=== PATIENT | female | born 1955 | race Caucasian/White ===

== ENCOUNTER 2022-10-15 19:46 | Emergency (ER) | payer MEDICAID, OTHER ==
[~2022-10-15] VITALS: Ht 149.9 cm; Wt 57.0 kg
[~2022-10-15 19:46] MED LIST: AMA4 PO; LOSA100T3 PO; METF-415 PO
[2022-10-15] MEDS ORDERED: ONDANSETRON HCL 4MG/2ML INJ IV STA (20:10)
[2022-10-15 20:35] LABS: BASOPHILS % 0.8 % (0.0-2.0); EOSINOPHILS % 3.7 % (0.0-5.0); HEMATOCRIT. 40.1 % (36.0-48.0); HEMOGLOBIN. 13.3 g/dL (12.0-16.0); MEAN CORPUSCULAR HEMOGLOBIN 26.7 pg (28.0-32.0); MEAN CORPUSCULAR VOLUME 80.9 fL (81.0-99.0); MEAN PLATELET VOLUME 7.2 fl (7.4-10.4); MONOCYTES % 9.3 % (2.0-8.0); NEUTROPHILS % 43.2 % (40.0-76.0); PLATELET 298 x1000/uL (130-400); RED BLOOD CELL COUNT 4.96 mill/uL (4.2-5.4); RED CELL DISTRIBUTION WIDTH 16.3 % (11.6-14.6)
[2022-10-15 20:52] LABS: CHLORIDE 105 mEq/L (98-107)
[2022-10-15] MEDS ORDERED: MAGNESIUM/ALUMINUM HYDROXIDE/SIMETHICONE 30ML UDC PO ONE (22:15)
[2022-10-15] MEDS ORDERED: VISCOUS LIDOCAINE 2% 15 ML UDC PO ONE (22:15)
[2022-10-15 23:30] VITALS: BP 132/66
== END 2022-10-15 23:58 | disposition home or self-care (01) ==
LOC: ER 19:46
DX: R11.2 Nausea with vomiting, unspecified (principal); K57.90 Diverticulosis of intestine, part unspecified, without perforation or abscess without bleeding; E11.9 Type 2 diabetes mellitus without complications; E78.00 Pure hypercholesterolemia, unspecified; I10 Essential (primary) hypertension; Z90.710 Acquired absence of both cervix and uterus
CPT/HCPCS: 36415; 71045; 74176; 80053; 83690; 84484; 85025; 86850; 86900; 86901; 93005; 96374; 99285; J2405